=== PATIENT | male | born 1950 | race Caucasian/White ===

== ENCOUNTER 2016-09-11 20:45 | Observation (INO) | payer MEDICARE, MEDICAID ==
[~2016-09-11] VITALS: Ht 170.2 cm; Wt 99.0 kg
[2016-09-11] MEDS ORDERED: ASPIRIN 81 MG CHEW TAB ONE (20:52)
[2016-09-11] MEDS ORDERED: ONDANSETRON 4 MG VIAL ONE (21:42)
[2016-09-11] MEDS ORDERED: MORPHINE 2 MG/ML SYR ONE (21:43)
[2016-09-12] MEDS ORDERED: MORPHINE 2 MG/ML SYR IV PRN (01:15)
[2016-09-12] MEDS ORDERED: NITROGLYCERIN 50 MG/250 ML IV PRN (01:15)
[2016-09-12] MEDS ORDERED: TRAMADOL 50 MG TAB PO PRN (01:15)
[2016-09-12] MEDS ORDERED: DOCUSATE SOD 100 MG CAP PO PRN (01:15)
[2016-09-12] MEDS ORDERED: LORAZEPAM 0.5 MG TAB PO PRN (01:15)
[2016-09-12] MEDS ORDERED: TEMAZEPAM 7.5 MG CAP PO PRN (01:15)
[2016-09-12] MEDS ORDERED: NITROGLYCERIN SL 0.4 MG TAB SL PRN (01:15)
[2016-09-12] MEDS ORDERED: SODIUM CHLORIDE 0.9% FLUSH BAG 500 ML IV PRN (01:15)
[2016-09-12] MEDS ORDERED: ONDANSETRON 4 MG VIAL IV PRN (01:15)
[2016-09-12] MEDS ORDERED: SALINE FLUSH 10 ML FLUSH PRN (01:15)
[2016-09-12] MEDS ORDERED: ACETAMINOPHEN 325 MG TAB PO PRN (01:20)
[2016-09-12 02:31] VITALS: BP_SYST 124; BP_SYST 132; RESP 20; TEMP 98.2
[2016-09-12 02:32] VITALS: Ht 170.2 cm; Wt 99.0 kg
[2016-09-12 02:45] VITALS: RESP 18
[2016-09-12 07:35] VITALS: BP_SYST 108; RESP 20; TEMP 98.3
[2016-09-12] MEDS ORDERED: SALINE FLUSH 10 ML FLUSH SCH (08:00)
[2016-09-12] MEDS ORDERED: ASPIRIN EC 81 MG TAB PO SCH (08:00)
[2016-09-12] MEDS ORDERED: MULTIVITS/MINERALS (THERAGRAN M) TAB PO SCH (10:25)
[2016-09-12] MEDS ORDERED: ASPIRIN 81 MG CHEW TAB PO SCH (10:25)
[2016-09-12] MEDS ORDERED: METOPROLOL XL 50 MG TAB PO SCH (10:25)
[2016-09-12] MEDS ORDERED: PHENYTOIN 100 MG CAP PO SCH (10:25)
[2016-09-12] MEDS ORDERED: LEVOTHYROXINE 0.175 MG TAB PO SCH (10:31)
[2016-09-12 11:54] VITALS: BP_SYST 123; RESP 20; TEMP 97.9
[2016-09-12 12:06] VITALS: BP_SYST 123; RESP 20; TEMP 97.9
[2016-09-12] MEDS ORDERED: Atorvastatin 20 MG TAB PO SCH (21:00)
== END 2016-09-12 10:27 | disposition home or self-care (01) ==
LOC: ENRESERV → ENRESERVTM → ENRESERVDT → ER 20:45 → ENPENDDIS 20:46 → EMR 20:46 → PCU2 09-12 01:52
PROVIDERS: ADMIT Internal Medicine Cardiovascular Disease; ATTEND Internal Medicine Cardiovascular Disease
DX: R07.89 Other chest pain (principal); I10 Essential (primary) hypertension; I71.9 Aortic aneurysm of unspecified site, without rupture; E78.5 Hyperlipidemia, unspecified; Z86.73 Personal history of transient ischemic attack (TIA), and cerebral infarction without residual deficits; Z79.899 Other long term (current) drug therapy; Z79.82 Long term (current) use of aspirin; Z87.891 Personal history of nicotine dependence; J44.9 Chronic obstructive pulmonary disease, unspecified; G40.909 Epilepsy, unspecified, not intractable, without status epilepticus
CPT/HCPCS: 36415; 71010; 71250; 80053; 82550; 82553; 83735; 84484; 85025; 85379; 85610; 85730; 93005; 96374; 96375; 99291; G0378; J2405; 94799